=== PATIENT | female | born 1945 | race Caucasian/White ===

== ENCOUNTER 2018-05-24 09:57 | Observation (INO) ==
--- NOTE | 2018-05-24 10:08 | ED ---
HPI General Chief Complaint: Chest Pain Stated Complaint: chest pain Time Seen by Provider: 05/24/18 09:59 History of Present Illness HPI narrative: The patient was seen and examined in the presence of the nurse. This patient complains of chest pain. 1 hour ago she was sitting down and developed a sternal chest pain and pressure. It felt like a brick in her chest. It radiated down toward her right side. Lasted a few minutes and resolved. It occurred one more time this morning and so she came to the ER. She is currently pain-free. She reports she had a negative stress test 2 years ago. She is hypertensive and hyperlipidemic and has family history of CAD. Severity was moderate. No alleviating factors. No exacerbating factors. Related Data Home Medications Medication Instructions Recorded Confirmed Aspir-81 81 mg PO DAILY 05/24/18 05/24/18 calcium carbonate [Calcium 500] 1,500 mg PO DAILY 05/24/18 05/24/18 esomeprazole magnesium [Nexium] 40 mg PO DAILY 05/24/18 05/24/18 estradiol 1 mg PO DAILY 05/24/18 05/24/18 metoprolol tartrate 25 mg PO BID 05/24/18 05/24/18 multivitamin [Multiple Vitamins] 1 tab PO DAILY 05/24/18 05/24/18 wheat dextrin [Benefiber Clear SF 3 tbsp PO DAILY 05/24/18 05/24/18 (dextrin)] Allergies Allergy/AdvReac Type Severity Reaction Status Date / Time codeine AdvReac Nausea/Vomi Verified 05/24/18 10:12 ting Review of Systems ROS: all other systems reviewed are negative [facility] Medical History Medical History GERD (gastroesophageal reflux disease) (Acute) High cholesterol (Acute) Hx of hysterectomy (Acute) Hypertension (Acute) Surgical History Surgical History Hx of cholecystectomy (Acute) Hx of tonsillectomy (Acute) Social History Social History Substance History: No History of Abuse Smoking Status: Never smoker How Often Do You Have a Drink Containing Alcohol: 2 to 4 times a month Recent Travel in [facility] within the Last 8 Weeks: No Recent Out of Country Travel within the Last 8 Weeks: No Exam Narrative Exam Narrative: GENERAL: Well-nourished, well-developed patient in no apparent distress. SKIN: Focused skin assessment reveals no rash and nodules. Skin is Warm and dry. HEAD: Atraumatic. Normocephalic. EYES: Pupils equal and round. No scleral icterus. No injection or drainage. ENT: No nasal bleeding or discharge. Mucous membranes pink and moist. NECK: Trachea midline. No JVD. CARDIOVASCULAR: Regular rate and rhythm. No murmur appreciated. RESPIRATORY: No accessory muscle use. Clear to auscultation. Breath sounds equal bilaterally. GASTROINTESTINAL: Abdomen soft, non-tender, nondistended. Hepatic and splenic margins not palpable. MUSCULOSKELETAL: No obvious deformities. No clubbing. No cyanosis. No edema. NEUROLOGICAL: Awake and alert. No obvious cranial nerve deficits. Motor grossly within normal limits. Normal speech. PSYCHIATRIC: Appropriate mood and affect; insight and judgment normal. Course Initial Documented Vital Signs Pulse Oximetry 98 05/24/18 10:00 Last Documented Vital Signs Temperature 98 F 05/24/18 10:09 Pulse Rate 77 05/24/18 11:04 Respiratory Rate 18 05/24/18 11:04 Blood Pressure 146/75 H 05/24/18 11:04 Pulse Oximetry 100 05/24/18 11:04 Medical Decision Making MDM Narrative Medical decision making narrative: 73-year-old female who had 2 brief spells of central chest discomfort. She has multiple risk factors for CAD. Her EKG looks normal. Of ordered x-ray and lab studies and cardiac monitoring. She took an aspirin prior to arrival. Chest x-ray and labs are normal. She had a third spell of chest discomfort here in the department. I think she should be a telemetry observation given her multiple risk factors and recurrent symptoms. I did speak with her inside account executive Dr. Wen who request to be a bus info consultant I placed a call to the hospitalist to discuss. Medical Screen Exam Complete: Yes Emergency Medical Condition: Yes Differential Diagnosis Differential Diagnosis: Differential diagnosis includes SD, angina, pericarditis , pleurisy, GERD, anxiety. Medical Records Medical records reviewed: Yes I reviewed the patient's medical records. Lab Data Lab results reviewed: Yes I reviewed the patient's lab results. Lab results narrative: Labs and cardiac enzymes are normal for 1 set Result diagrams: 05/24/18 10:00 05/24/18 10:00 Lab Results 05/24/18 05/24/18 Range/Units 10:00 10:00 CBC w Diff Auto diff final WBC 4.5 (4.0-11.0) th/mm3 RBC 4.85 (4.00-5.30) mil/mm3 Hgb 14.8 (11.6-15.3) gm/dL Hct 43.0 (35.0-46.0) % MCV 88.8 (80.0-100.0) fL MCH 30.5 (27.0-34.0) pg MCHC 34.4 (32.0-36.0) % RDW 12.5 (11.6-17.2) % Plt Count 229 (150-450) th/mm3 MPV 7.9 (7.0-11.0) fL Neut % (Auto) 51.3 (16.0-70.0) % Lymph % (Auto) 35.4 (9.0-44.0) % Brown % (Auto) 7.8 (0.0-8.0) % Eos % (Auto) 4.9 H (0.0-4.0) % Baso % (Auto) 0.6 (0.0-2.0) % Neut # (Auto) 2.3 (1.8-7.7) th/mm3 Lymph # (Auto) 1.6 (1.0-4.8) th/mm3 Brown # (Auto) 0.4 (0.0-0.9) th/mm3 Eos # (Auto) 0.2 (0.0-0.4) th/mm3 Baso # (Auto) 0.0 (0.0-0.2) th/mm3 WBC Differential . Differential Comment . Sodium 139 (136-145) meq/L Potassium 3.8 (3.5-5.1) meq/L Chloride 107 (98-107) meq/L Carbon Dioxide 28.0 (21.0-32.0) meq/L Anion Gap 4 L (5-15) meq/L BUN 14 (7-18) mg/dL Creatinine 0.98 (0.50-1.00) mg/dL Estimated GFR 56 L (>89) mL/min Random Glucose 103 (74-106) mg/dL Calcium 8.9 (8.5-10.1) mg/dL Total Bilirubin 0.5 (0.2-1.0) mg/dL AST 23 (15-37) U/L ALT 35 (10-53) U/L Alkaline Phosphatase 85 (45-117) U/L Total Creatine Kinase 58 (26-192) U/L Troponin I Less than 0.02 L (0.02-0.05) ng/mL Total Protein 7.1 (6.4-8.2) g/dL Albumin 3.6 (3.4-5.0) g/dL Imaging Data Attestation: I personally reviewed and interpreted this imaging study as follows : My impression: Chest x-ray is normal Radiologist's impression: Chest X-Ray 05/24/18 10:05 CONCLUSION: No evidence of acute cardiopulmonary disease. ECG Data EKG Prior to Arrival: No Attestation: I personally reviewed and interpreted this ECG as follows: Prior ECG tracings: not available for review Interpretation: EKG shows a sinus rhythm at 78. OR interval is 205 ms. [place] is normal. No ST elevation or ectopy. Discharge Plan Discharge Disposition Patient Disposition: ED Admit(ED Internal Use Only) Discharge Order Discharge Orders: ED Use Only Admit Order (Routine); Ordered 05/24/18 Ordered By: Deondre Woodard Discharge Details Diagnosis: Chest pain in adult, Hypertension, Hyperlipidemia, Family history of coronary artery bypass graft surgery Physicians Team ED Provider: Deondre Woodard Primary Care Provider: Sergio Montano Rxs /Orders / Referrals /Forms Prescriptions: No Action Aspir-81 81 mg PO DAILY RF: 0 multivitamin [Multiple Vitamins] Tablet 1 tab PO DAILY RF: 0 estradiol 1 mg Tablet 1 mg PO DAILY RF: 0 calcium carbonate [Calcium 500] 500 mg calcium (1,250 mg) Tablet 1,500 mg PO DAILY RF: 0 esomeprazole magnesium [Nexium] 40 mg Capsule,Delayed Release(Dr/Ec) 40 mg PO DAILY RF: 0 metoprolol tartrate 25 mg Tablet 25 mg PO BID RF: 0 wheat dextrin [Benefiber Clear SF (dextrin)] 3 gram/3.5 gram Powder In Packet 3 tbsp PO DAILY RF: 0 Discharge Instructions Patient Printed Instructions: Chest Pain (ED) Status ED Status: Admitted Observation Patient
[2018-05-24 10:12] VITALS: RESP 18
[2018-05-24 10:19] LABS: Baso % (Auto) 0.6 % (0.0-2.0); Eos # (Auto) 0.2 th/mm3 (0.0-0.4); Eos % (Auto) 4.9 % (0.0-4.0); Hemoglobin 14.8 gm/dL (11.6-15.3); Lymph # (Auto) 1.6 th/mm3 (1.0-4.8); Lymph % (Auto) 35.4 % (9.0-44.0); Mean Corpuscular HGB Conc 34.4 % (32.0-36.0); Mean Corpuscular Hemoglobin 30.5 pg (27.0-34.0); Mean Corpuscular Volume 88.8 fL (80.0-100.0); Mean Platelet Volume 7.9 fL (7.0-11.0); Mono # (Auto) 0.4 th/mm3 (0.0-0.9); Mono % (Auto) 7.8 % (0.0-8.0); Neut # (Auto) 2.3 th/mm3 (1.8-7.7); Neut % (Auto) 51.3 % (16.0-70.0); Platelet Count 229 th/mm3 (150-450); Red Blood Count 4.85 mil/mm3 (4.00-5.30); Red Cell Distribution Width 12.5 % (11.6-17.2); White Blood Count 4.5 th/mm3 (4.0-11.0)
[2018-05-24 10:26] LABS: Chloride 107 meq/L (98-107); Potassium 3.8 meq/L (3.5-5.1); Sodium 139 meq/L (136-145)
[2018-05-24 10:29] LABS: Albumin 3.6 g/dL (3.4-5.0); Calcium 8.9 mg/dL (8.5-10.1)
[2018-05-24 10:30] LABS: Anion Gap 4 meq/L (5-15); Blood Urea Nitrogen 14 mg/dL (7-18); Glucose,Random 103 mg/dL (74-106)
[2018-05-24 10:33] LABS: Alanine Aminotransferase 35 U/L (10-53); Aspartate Aminotransferase 23 U/L (15-37); Glomerular Filtration Rate 56 mL/min (>89)
[2018-05-24 10:34] LABS: Total Protein 7.1 g/dL (6.4-8.2)
[2018-05-24 10:36] LABS: Alkaline Phosphatase 85 U/L (45-117)
[2018-05-24 10:42] LABS: Creatine Kinase 58 U/L (26-192)
--- NOTE | 2018-05-24 11:31 | XR ---
EXAM DATE: 05/24/2018 11:27 AM EST AGE/SEX: 73 years / Female INDICATIONS: Patient presents with chest pain. CLINICAL DATA: This is the patient's initial encounter. Patient reports that signs and symptoms have been present for 3 days and indicates a pain score of 7/10. MEDICAL/SURGICAL HISTORY: None. None. COMPARISON: No prior exams available for comparison. FINDINGS: A single AP view of the chest demonstrates the lungs to be symmetrically aerated without evidence of mass, infiltrate or effusion. The cardiomediastinal contours are unremarkable. Osseous structures a re intact. CONCLUSION: No evidence of acute cardiopulmonary disease. Electronically signed by: Sp Mars MD Board Certified Radiologist 05/24/2018 11:30 AM EST
[2018-05-24] MEDS ORDERED: Acetaminophen 500 MG Tablet PO PRN (12:24)
--- NOTE | 2018-05-24 13:00 | P.HPIM ---
History of Present Illness Primary Care Physician: Sergio Montano DO Chief Complaint: Chest pain History of Present Illness: 73-year-old female with known history of hypertension, hyperlipidemia who presented to hospital for evaluation of chest pain. Patient states that she is in normal state of health and she was having her T this morning when she developed a sudden onset of chest pain in the right anterior chest that moved its way down into the right lower part of her chest. She states that it felt like a brick hit her. It was 8/10 on a pain scale, it lasted for couple minutes and it resolved on its own. Patient and her daughter prepared to go shopping and she had another onset of chest discomfort which this time is located in the middle part of her chest radiating over into the left anterior chest that lasted for couple minutes as well. It also resolved on its own. At that time she did take an chewable aspirin that she had in her purse. Patient presented to the emergency department for evaluation. Initial workup was unremarkable. While the patient was in the emergency department she developed the right-sided chest pain again but she states that it was not as intense and this time is located on her right breast. She denied any nausea, vomiting, diaphoresis, shortness of breath, dyspnea. She states that she did have some mild dizziness. Patient indicates that she does go to Dr. Wen on a regular basis and her next follow-up appointment is September. She has undergone cardiac stress testing in the past which have been unremarkable. ER physician did contact patient's digital campaign manager who recommended that the patient be observed in the hospital with consultation. Review of Systems Review of Systems: all other systems reviewed are negative Cardiovascular: Reports chest pain PMFSH Medical History Medical History GERD (gastroesophageal reflux disease) (Acute) High cholesterol (Acute) Hx of hysterectomy (Acute) Hypertension (Acute) Surgical History Surgical History Hx of cholecystectomy (Acute) Hx of tonsillectomy (Acute) Social History Social History Substance History: No History of Abuse Second Hand Smoke Exposure: Yes Smoking Status: Never smoker How Often Do You Have a Drink Containing Alcohol: 2 to 4 times a month Recent Travel in [facility] within the Last 8 Weeks: No Recent Out of Country Travel within the Last 8 Weeks: No Immunization History Tetanus Immunization: Unsure Medications and Allergies Allergies Allergy/AdvReac Type Severity Reaction Status Date / Time codeine AdvReac Nausea/Vomi Verified 05/24/18 10:12 ting Home Medications Medication Instructions Recorded Confirmed Type Aspir-81 81 mg PO DAILY 05/24/18 05/24/18 History calcium carbonate [Calcium 500] 1,500 mg PO DAILY 05/24/18 05/24/18 History esomeprazole magnesium [Nexium] 40 mg PO DAILY 05/24/18 05/24/18 History estradiol 1 mg PO DAILY 05/24/18 05/24/18 History metoprolol tartrate 25 mg PO BID 05/24/18 05/24/18 History multivitamin [Multiple Vitamins] 1 tab PO DAILY 05/24/18 05/24/18 History wheat dextrin [Benefiber Clear SF 3 tbsp PO DAILY 05/24/18 05/24/18 History (dextrin)] Active Medications: Active Medications Acetaminophen (Tylenol) 500 mg PO Q4H PRN PRN Reason: HEADACHE Aspirin (Aspirin Chew) 81 mg PO DAILY JOVANY Estradiol (Estrace) 1 mg PO DAILY JOVANY Metoprolol Tartrate (Lopressor) 25 mg PO BID JOVANY Nitroglycerin (Nitrostat Sl) 0.4 mg SL Q5M PRN PRN Reason: CHEST PAIN Ondansetron HCl (Zofran Inj) 4 mg IV.PUSH Q6H PRN PRN Reason: NAUSEA Sodium Chloride (Ns Flush) 2 ml IV.FLUSH BID JOVANY Sodium Chloride (Ns Flush) 2 ml IV.FLUSH PRN PRN PRN Reason: FLUSH AFTER USING IV ACCESS Physical Exam Vital signs: Vital Signs 05/24/18 10:00 05/24/18 10:09 05/24/18 11:04 Temperature 98 F Pulse Rate 72 77 Respiratory Rate 18 18 Blood Pressure 162/89 H 146/75 H Pulse Oximetry 98 98 100 Intake & Output 05/23/18 05/24/18 05/24/18 18:59 06:59 18:59 Weight 78.3 kg Other: Date of Last Bowel Movement 05/24/18 Weight On Admission 78.9 kg Narrative: GENERAL: Well-developed, well-nourished, in no acute distress. alert and orientated HEENT: Head is normocephalic without any lesions or masses noted. Facial features are symmetric. Eyes: Pupils equal round reactive to light. Extraocular muscles are intact. Conjunctivae were clear. Oropharyngeal: Pharynx without any erythema edema. Tongue is midline without deviation. Buccal mucosa is moist without any masses or lesions NECK: Supple without any masses. Trachea midline no deviation. No JVD, no bruits are appreciated CARDIAC: Regular rhythm, regular rate. S1/S2 are heard. No murmurs gallops or rubs. LUNGS: Clear to auscultation bilaterally. No wheeze, rhonchi or rales. No use of accessory muscles on inspiration or expiration. ABDOMEN: Soft, nontender. Nondistended. Bowel sounds heard in all 4 quadrants. No organomegaly or masses. Negative rebound, negative guarding EXTREMITIES: No edema, pulses are equal bilaterally. No cyanosis or clubbing NEUROLOGY: Mood and affect appear appropriate. Cranial nerves II through XII grossly intact. Muscle strength 5/5 in upper and lower extremities bilaterally. Deep tendon reflexes are 2+ in upper and lower extremities bilaterally. Results Labs CBC & Chem 7: 05/24/18 10:00 05/24/18 10:00 Imaging Impressions Chest X-Ray 05/24/18 10:05 CONCLUSION: No evidence of acute cardiopulmonary disease. Caprini VTE Risk Assessment Caprini VTE Risk Assessment: Moderate/High Risk (score >= 2) Caprini Risk Assessment Model: Point Value = 1 Point Value = 2 Point Value = 3 Point Value = 5 Age 41-60 Minor surgery BMI > 25 kg/m2 Swollen legs Varicose veins or History of unexplained or recurrent spontaneous Oral contraceptives or hormone replacement Sepsis (< 1 month) Serious lung disease, including pneumonia (< 1 month) Abnormal pulmonary function Acute myocardial infarction Congestive heart failure (< 1 month) History of inflammatory bowel disease Medical patient at bed rest Age 61-74 Arthroscopic surgery Major open surgery (> 45 min) Laparoscopic surgery (> 45 min) Malignancy Confined to bed (> 72 hours) Immobilizing plaster cast Central venous access Age >= 75 History of VTE Family history of VTE Factor V Leiden Prothrombin [id number] Lupus anticoagulant Anticardiolipin antibodies Elevated serum homocysteine Heparin-induced thrombocytopenia Other congenital or acquired thrombophilia Stroke (< 1 month) Elective arthroplasty Hip, pelvis, or leg fracture Acute spinal cord injury (< 1 month) Prophylaxis Regimen: Total Risk Factor Score Risk Level Prophylaxis Regimen 0-1 Low Early ambulation 2 Moderate Order ONE of the following: *Sequential Compression Device (SCD) *Heparin 5000 units SQ BID 3-4 Higher Order ONE of the following medications: *Heparin 5000 units SQ TID *Enoxaparin/Lovenox 40 mg SQ daily (WT < 150 kg, CrCl > 30 mL/min) *Enoxaparin/Lovenox 30 mg SQ daily (WT < 150 kg, CrCl > 10-29 mL/min) *Enoxaparin/Lovenox 30 mg SQ BID (WT < 150 kg, CrCl > 30 mL/min) AND/OR *Sequential Compression Device (SCD) 5 or more Highest Order ONE of the following medications: *Heparin 5000 units SQ TID (Preferred with Epidurals) *Enoxaparin/Lovenox 40 mg SQ daily (WT < 150 kg, CrCl > 30 mL/min) *Enoxaparin/Lovenox 30 mg SQ daily (WT < 150 kg, CrCl > 10-29 mL/min) *Enoxaparin/Lovenox 30 mg SQ BID (WT < 150 kg, CrCl > 30 mL/min) AND *Sequential Compression Device (SCD) Assessment and Plan Plan Chest pain Patient with increased cardiac risk factors to include age, hypertension, hyper lipidemia, family history of heart disease We will continue to rule the patient out for acute coronary event with serial cardiac enzymes Initial EKG is reviewed by myself which did indicate normal sinus rhythm without acute abnormality If patient ruled out for acute coronary event will anticipate myocardial perfusion study tomorrow morning to rule out any underlying ischemia. Unable to perform today secondary to patient having caffeine this morning. If patient' s digital campaign manager is agreeable with plan Patient will be continued on aspirin, nitroglycerin as needed, beta-kojo Obtain lipid panel Patient's digital campaign manager Dr. Wen was consulted for further recommendations Hypertension Continue home medications DVT prevention Sequential compression devices Discussed Condition With: Patient, nursing staff, Dr. Flores H&P: Quality VTE Deep Vein Thrombosis/Pulmonary Embolism Present on Admission: No
[2018-05-24 13:40] LABS: Creatine Kinase 55 U/L (26-192)
--- NOTE | 2018-05-24 15:27 | ECG ---
Date Performed: 05/24/2018 Time Performed: 13:11:27 PTAGE: 73 years EKG: Sinus rhythm WITH FIRST DEGREE AV BLOCK LOW QRS VOLTAGE IN PRECORDIAL LEADS ABNORMAL ECG No significant change PREVIOUS TRACING : 05/24/2018 10.02 DOCTOR: Lg Fontana Interpretating Date/Time 05/24/2018 15:26:22
--- NOTE | 2018-05-24 15:29 | ECG ---
Date Performed: 05/24/2018 Time Performed: 10:02:22 PTAGE: 73 years EKG: Sinus rhythm NORMAL ECG No significant change PREVIOUS TRACING : 06/22/2000 12.14 DOCTOR: Lg Fontana Interpretating Date/Time 05/24/2018 15:27:03
[2018-05-24 20:28] VITALS: BP 123/57; PULSE 81; TEMP 98.4; O2SAT 94
[2018-05-24] MEDS ORDERED: Metoprolol Tartrate 25 MG Tablet PO SCH (21:00)
--- NOTE | 2018-05-24 21:17 | MB ---
cc: Ozzy Wen MD DATE: 05/24/2018 REASON FOR CONSULTATION: Atypical chest discomfort. HISTORY OF PRESENT ILLNESS: Ms. Marcus is a pleasant 73-year-old lady with a history of hyperlipidemia and hypertension. She comes in with atypical right-sided chest heaviness sensation radiating down to her abdomen on the right side. The episode lasted for 5-6 minutes with no associated shortness of breath, nausea, palpitations or diaphoresis. She was lightheaded somewhat with it. She went to the bathroom and then left the house. She was in the car with her daughter and had another episode and decided to come to the hospital to get it checked. She is active and she walks her dog for 1-1/2 to 2 miles daily and she did that this morning without any chest discomfort or shortness of breath. Denies shortness of breath in general. Denies palpitations, dizziness or syncope. Denies orthopnea, PND or leg swelling. Denies claudication. REVIEW OF SYSTEMS: A 12-point system review is unremarkable, except as mentioned in the history of present illness. PAST MEDICAL AND SURGICAL HISTORY: Includes the followin. Supraventricular tachycardia, controlled on low-dose beta blockers. 2. Mild carotid disease. 3. History of syncope. 4. Hysterectomy in 1992. 5. Skin cancer removal in 2009. 6. Cholecystectomy in 1979. SOCIAL HISTORY: Never a smoker. Denies recreational drug abuse or ETOH abuse. She lives with her daughter. FAMILY HISTORY: Mother at age 87. She had coronary artery disease and bypass just prior to that. Father at age 64 from emphysema. Sister had colon and rectal cancer. History of diabetes in the extended family. ALLERGIES: CODEINE, DEMEROL AND TRAMADOL. MEDICATIONS AT HOME: Include: 1. Ecotrin 81 mg p.o. daily. 2. Benefiber oral powder p.r.n. 3. Calcium 600 and vitamin D orally once daily. 4. Centrum multivitamins once a day. 5. Estradiol 1 mg p.o. daily. 6. Metoprolol tartrate 25 mg p.o. b.i.d. 7. Omeprazole 20 mg p.o. at bedtime. 8. Simvastatin 40 mg p.o. at bedtime. PHYSICAL EXAMINATION: GENERAL: A 73-year-old lady lying in bed, in no apparent distress, alert and oriented x 3, answers questions appropriately. VITAL SIGNS: Show blood pressure is 148/70 mmHg. It was 160/89 upon presentation to the hospital. Respirations 14 per minute, pulse of 76 beats per minute and regular, afebrile. HEENT: Show head is normocephalic. Pupils are equal and reactive. Throat is within normal limits. NECK: Supple. No carotid bruit. No thyromegaly or jugular venous distention noted. LUNGS: Clear to auscultation and percussion. CARDIOVASCULAR: S1 and S2 are normal with a faint S4 gallop. No rubs or murmurs. ABDOMEN: Lax, nontender. Normoactive bowel sounds. No organomegaly. No masses felt. EXTREMITIES: No clubbing, cyanosis or edema. Pulses 2+ bilaterally and no bruit noted. NEUROLOGIC: Grossly intact with no focal deficits. RECTAL: Deferred. DIAGNOSTIC DATA: EKG shows sinus rhythm x 3 with no acute ischemic changes. LABORATORY DATA: Shows CPKs and troponins x 3 are within normal limits. The rest of her labs show sodium 139, potassium 3.8, BUN 14, creatinine 0.98. White count 4.5, hemoglobin 14.8, platelet count 229,000. ASSESSMENT AND RECOMMENDATIONS: 1. Atypical chest discomfort, ruled out by serial cardiac enzymes and EKGs. She does not get this discomfort with exertion and she has already been ruled out with a normal EKG, which makes her upcoming event rate quite low. At this point, she can be discharged from the cardiac standpoint and follow up with me as an outpatient this week. 2. Hypertension. She gained some weight and blood pressure is not optimally controlled. She will be started on low-dose losartan at 25 mg daily and we will follow up her response as an outpatient. 3. Hyperlipidemia, on simvastatin. Continue the same and follow up as an outpatient. Thank you for the consultation. MD JEET Arellano/dolly , 07:55 PM , 08:06 PM
[2018-05-25] MEDS ORDERED: Estradiol 1 MG Tablet PO SCH (09:00)
--- NOTE | 2018-05-25 14:32 | ECG ---
Date Performed: 05/24/2018 Time Performed: 16:05:59 PTAGE: 73 years EKG: Sinus rhythm LOW QRS VOLTAGE IN PRECORDIAL LEADS BORDERLINE ECG PREVIOUS TRACING : 05/24/2018 13.11 Since the previous tracing, no significant change noted DOCTOR: Juan Fortune Interpretating Date/Time 05/25/2018 14:27:08
== END 2018-05-24 20:50 | disposition home or self-care (01) ==
LOC: PHEDA 09:57 → PHED 09:57 → PH3 12:00
PROVIDERS: ADMIT Hospitalist; ATTEND Hospitalist
CPT/HCPCS: 71010; 71045; 80053; 82550; 84484; 85025; 93005; 99285; G0378